=== PATIENT | male | born 2000 | race Caucasian/White ===

== ENCOUNTER 2024-12-10 20:50 | Emergency (ER) | payer OTHER, SELFPAY ==
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
[2024-12-10 21:05] VITALS: RESP 16
[2024-12-10] MEDS: HYDROmorphone HCl 1 MG/ML SYRINGE IVPUSH ×2 (21:05→22:04)
[2024-12-10 21:06] VITALS: BP 172/94; PULSE 110; RESP 16; TEMP 36.8; O2SAT 97; BMI 25.6
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
[2024-12-10 21:08] LABS: MANUAL DIFF FLAG NO
[2024-12-10 21:09] LABS: Basophils Percent Auto 0.3 % (0-2); Eosinophils Absolute Auto 0.6 X10*3/uL (0.0-0.4); Eosinophils Percent Auto 5.2 % (0-4); Hematocrit 44.4 % (42.0-52.0); Hemoglobin 15.3 g/dl (14.0-18.0); Imm Gran Abs Auto 0.02 X10*3/uL (0.00-0.03); Imm Gran Pct Auto 0.2 % (0.0-0.4); Lymphocytes Absolute Auto 3.9 X10*3/uL (1.2-4.9); Lymphocytes Percent Auto 33.7 % (20-40); Mean Corpuscular HGB Conc 34.5 g/dl (31.0-36.0); Mean Corpuscular Hemoglobin 30.1 pg (27.0-33.0); Mean Corpuscular Volume 87.4 fL (80.0-98.0); Mean Platelet Volume 8.6 fL (9.4-12.4); Monocytes Absolute Auto 0.9 X10*3/uL (0.1-1.2); Monocytes Percent Auto 7.9 % (2-11); Neutrophils Absolute Auto 6.1 x10*3/uL (2.0-8.3); Neutrophils Percent Auto 52.7 % (45-73); Platelet Count 383 X10*3/uL (160-400); Red Blood Count 5.08 X10*6/uL (4.60-5.80); Red Cell Distribution Width 13.3 % (11.0-16.0); White Blood Count 11.6 X10*3/uL (4.8-10.8)
[2024-12-10] MEDS: ceFAZolin Sodium/Dextrose,Iso 2 GM/50 ML PIGGYBACK IV (21:11)
[2024-12-10 21:22] LABS: Anion Gap 14 (12-20); Blood Urea Nitrogen 14 mg/dL (9-16); Calcium 9.5 mg/dL (8.4-10.2); Carbon Dioxide 26 mmol/L (22-29); Chloride 103 mmol/L (96-108); Estimated Glomerular Filt Rate > 60; Glucose Random 103 mg/dL (60-115); Magnesium 2.1 mg/dL (1.6-2.6); Potassium 3.3 mmol/L (3.3-5.1); Sodium 140 mmol/L (135-145)
[2024-12-10 22:04] VITALS: RESP 16
[2024-12-10] MEDS: Lidocaine HCl 1%/Epi 1:100,000 10 ML VIAL INFILTRATI ×2 (22:57)
[2024-12-10] MEDS: Pantoprazole Sodium 40 MG/10 ML VIAL IVPUSH (23:12)
[2024-12-10] MEDS: Midazolam HCl 2 MG/2 ML VIAL 4 MG IVPUSH (23:12)
[2024-12-11] MEDS: Lidocaine HCl 1%/Epi 1:100,000 10 ML VIAL INFILTRATI ×2 (00:09)
[2024-12-11] MEDS: methocarbamoL 750 MG TABLET 1500 MG PO (01:25)
[2024-12-11] MEDS: Ketorolac Tromethamine 15 MG/ML VIAL IVPUSH (01:25)
[2024-12-11 01:44] VITALS: BP 144/78; PULSE 110; RESP 16; TEMP 36.7; O2SAT 98
[2024-12-11 01:48] VITALS: BP 144/78; PULSE 110; RESP 16; TEMP 36.7; O2SAT 98
== END 2024-12-11 01:50 | disposition home or self-care (01) ==
PROVIDERS: Physician Assistant Medical; Emergency Provider Emergency Medicine
DX: S62.317B Displaced fracture of base of fifth metacarpal bone, left hand, initial encounter for open fracture (principal); S61.432A Puncture wound without foreign body of left hand, initial encounter; W32.0XXA Accidental handgun discharge, initial encounter; Y93.9 Activity, unspecified; Y92.9 Unspecified place or not applicable; Y99.9 Unspecified external cause status
CPT/HCPCS: 12042; 29125; 36415; 73110; 73130; 80048; 83735; 85025; 96365; 96375; 96376; 99285; J0690; J1171; J1885; J2004; J2250; J2470

== ENCOUNTER → 2024-12-10 20:59 | Outpatient (BNV) | payer OTHER, SELFPAY | PROVIDERS: Visit Provider Student in an Organized Health Care Education/Training Program | DX: S62.317A Displaced fracture of base of fifth metacarpal bone, left hand, initial encounter for closed fracture (principal) | CPT/HCPCS: 73110; 73130 ==